=== PATIENT | male | born 1960 | race Caucasian/White ===

== ENCOUNTER → 2016-04-04 | Outpatient (CLI) | payer BC ==
[~2016-04-04] VITALS: Ht 170.2 cm; Wt 65.8 kg
[~2016-04-04] MED LIST: BP pill PO; LEVO25TA5 PO; LISI-538 PO; NS 1,000 ML IV SCH; OMEP40CA2 PO; PROPOFOL 200 MG/20 ML VIAL As Ordered ONE
--- NOTE | 2016-04-04 09:13 | ROOR ---
Patient Name: Ezekiel Gaxiola Procedure Date: 04/04/2016 8:48 AM Date of : 1960 Age: 55 Room: [facility] Gender: Male Note Status: Finalized Procedure: Colonoscopy Indications: Screening for colorectal malignant neoplasm Providers: Jose Mcgovern Jr, MD Referring MD: OLIVA SERRANO MD Requesting Provider: Medicines: Propofol per Anesthesia Complications: No immediate complications. Procedure: Pre-Anesthesia Assessment: - Prior to the procedure, a History and Physical was performed, and patient medications and allergies were reviewed. The patient is competent. The risks and benefits of the procedure and the sedation options and risks were discussed with the patient. All questions were answered and informed consent was obtained. Patient identification and proposed procedure were verified by the physician and the nurse in the pre-procedure area and in the procedure room. Mental Status Examination: alert and oriented. Airway Examination: normal oropharyngeal airway and neck mobility. Respiratory Examination: clear to auscultation. CV Examination: normal. ASA Grade Assessment: II - A patient with mild systemic disease. After reviewing the risks and benefits, the patient was deemed in satisfactory condition to undergo the procedure. The anesthesia plan was to use moderate sedation / analgesia (conscious sedation). Immediately prior to administration of medications, the patient was re-assessed for adequacy to receive sedatives. The heart rate, respiratory rate, oxygen saturations, blood pressure, adequacy of pulmonary ventilation, and response to care were monitored throughout the procedure. The physical status of the patient was re-assessed after the procedure. The Colonoscope was introduced through the anus and advanced to the cecum, identified by appendiceal orifice and ileocecal valve. The colonoscopy was performed with moderate difficulty due to significant looping. Successful completion of the procedure was aided by using manual pressure, withdrawing and reinserting the scope and straightening and shortening the scope to obtain bowel loop reduction. The patient tolerated the procedure well. The quality of the bowel preparation was adequate and excellent. Findings: The perianal and digital rectal examinations were normal. Pertinent negatives include normal sphincter tone, no palpable rectal lesions and no anal lesion or abnormality was detected. The rectum, recto-sigmoid colon, sigmoid colon, descending colon, transverse colon, ascending colon, cecum, appendiceal orifice and ileocecal valve appeared normal. The sigmoid colon, descending colon, transverse colon and ascending colon revealed moderately excessive looping. Impression: - The rectum, recto-sigmoid colon, sigmoid colon, descending colon, transverse colon, ascending colon, cecum, appendiceal orifice and ileocecal valve are normal. - There was significant looping of the colon. - No specimens collected. Recommendation: - Discharge patient to home (ambulatory). - Repeat colonoscopy in 10 years for screening purposes. Jose Mcgovern MD Jose Mcgovern Jr, MD 04/04/2016 9:13:21 AM This report has been signed electronically. Number of Addenda: 0 Note Initiated On: 04/04/2016 8:48 AM Estimated Blood Loss: Estimated blood loss: none.
[2016-04-04 09:30] VITALS: BP 120/85
== END | disposition home or self-care (01) ==
LOC: M OPP 08:06
PROVIDERS: ATTEND Surgery
DX: Z12.11 Encounter for screening for malignant neoplasm of colon (principal); I10 Essential (primary) hypertension; E03.9 Hypothyroidism, unspecified; R12 Heartburn; Z92.3 Personal history of irradiation; Z91.018 Allergy to other foods; Z87.891 Personal history of nicotine dependence; Z85.21 Personal history of malignant neoplasm of larynx; Z88.0 Allergy status to penicillin; Z79.899 Other long term (current) drug therapy
CPT/HCPCS: 99156; 99157; G0121

== ENCOUNTER 2016-06-15 08:31 | Emergency (ER) | payer BC ==
[~2016-06-15] VITALS: Ht 167.6 cm; Wt 63.5 kg
[~2016-06-15 08:31] MED LIST changes: -NS 1,000 ML IV SCH; -PROPOFOL 200 MG/20 ML VIAL As Ordered ONE
[2016-06-15 11:21] VITALS: BP 129/90
--- NOTE | 2016-06-15 15:10 | REP ---
THORACIC SPINE, THREE VIEWS: HISTORY: Spinal fusion. COMPARISON: PA/lateral chest, 06/03/2005. The patient is status post T9 to L3 posterior spinal fusion. Metal rods and pedicle screws are present. There is an old compression fracture of the L1 vertebral body with moderate loss of vertebral body height. The T12-L1 and L1-2 intervertebral discs are decreased in height consistent with disc degeneration. Osteophytes are present on T12 and L1. Increased kyphosis is present at the T12-L1 level. The hardware appears intact. IMPRESSION: The patient is status post T9 to L3 posterior spinal fusion. Signed by Bryson Acosta MD 06/15/2016 02:16 P
--- NOTE | 2016-06-15 15:10 | REP ---
LUMBAR SPINE, FIVE VIEWS: HISTORY: Spinal fusion. The patient is status post T9 to L3 posterior spinal fusion. Metal rods and pedicle screws are present. There is an old compression fracture of the L1 vertebral body with moderate loss of vertebral body height. The T12-L1, L1-2, and L4-5 intervertebral discs are decreased in height, consistent with disc degeneration. Osteophytes are present on T12 and L1. There is narrowing of the L5-S1 facet joints with associated sclerosis. There is increased kyphosis at the T12-L1 level. The hardware appears intact. IMPRESSION: The patient is status post T9 to L3 posterior spinal fusion. Signed by Bryson Acosta MD 06/15/2016 02:16 P
== END 2016-06-15 11:30 | disposition home or self-care (01) ==
LOC: M ED 09:39
DX: M54.9 Dorsalgia, unspecified (principal); E03.9 Hypothyroidism, unspecified; E78.00 Pure hypercholesterolemia, unspecified; Z85.819 Personal history of malignant neoplasm of unspecified site of lip, oral cavity, and pharynx; Z87.891 Personal history of nicotine dependence; Z88.0 Allergy status to penicillin; Z91.02 Food additives allergy status; K21.9 Gastro-esophageal reflux disease without esophagitis

== ENCOUNTER → 2017-07-30 | Outpatient (CLI) | payer BC | LOC: M WUC 16:28 | DX: J20.9 Acute bronchitis, unspecified (principal); M51.34 Other intervertebral disc degeneration, thoracic region; M85.88 Other specified disorders of bone density and structure, other site | CPT/HCPCS: 71046 ==

== ENCOUNTER → 2021-01-05 | Outpatient (CLI) | payer BC ==
[~2021-01-05] MED LIST changes: -LISI-538 PO; +LISI20TA33 PO; -OMEP40CA2 PO; +OMEP40CA4 PO
--- NOTE | 2021-01-05 13:20 | REPVR ---
PROCEDURE INFORMATION: Exam: MRA Neck Without Contrast Exam date and time: 01/05/2021 12:38 PM Age: 60 years old Clinical indication: Abnormal carotid US. TECHNIQUE: Imaging protocol: Magnetic resonance angiography of the neck without contrast. COMPARISON: No relevant prior studies available. FINDINGS: Right common carotid artery: There is severe stenosis of the right common carotid artery. An underlying dissection is suspected but difficult to confirm on this exam due to inherent limitations. Right internal carotid artery: There is moderate stenosis at the origin of the right cervical internal carotid artery. The lumen of the right cervical internal carotid remains small throughout its course. Right external carotid artery: No stenosis. No dissection or occlusion of the origin. Right vertebral artery: No stenosis. No dissection or occlusion. Left common carotid artery: No stenosis. No dissection or occlusion. Left internal carotid artery: No stenosis of the extracranial segment. No dissection or occlusion. Left external carotid artery: No stenosis. No dissection or occlusion of the origin. Left vertebral artery: No stenosis. No dissection or occlusion. Bones/joints: There are severe degenerative changes throughout the cervical spine, not well characterized on this exam. IMPRESSION: 1. There is severe stenosis of the right common carotid artery. An underlying dissection is suspected but difficult to confirm on this exam due to inherent limitations. Vascular surgery consultation and CTA are recommended. 2. There is moderate stenosis at the origin of the right cervical internal carotid artery. The lumen of the right cervical internal carotid remains small throughout its course. Follow-up CTA is recommended. 3. There are severe degenerative changes throughout the cervical spine, not well characterized on this exam. A dedicated MRI of the cervical spine is recommended. REFERENCES: NASCET CRITERIA. The degree of internal carotid artery stenosis is based on NASCET criteria. Normal is no stenosis. Mild is less than 50% stenosis. Moderate is 50-69% stenosis. Severe is 70% to 99% stenosis. Total occlusion is no detectable patent lumen. Electronically signed by: Tucker Ybarra On 01/05/2021 13:20:32 PM
== END ==
LOC: M PLARAD 11:59
PROVIDERS: ATTEND Internal Medicine
DX: I65.23 Occlusion and stenosis of bilateral carotid arteries (principal); M50.30 Other cervical disc degeneration, unspecified cervical region

== ENCOUNTER 2022-11-26 07:41 | Day surgery (SDC) | payer BC ==
[~2022-11-26] VITALS: Ht 167.6 cm; Wt 60.8 kg
[~2022-11-26 07:41] MED LIST changes: +UNRESOLVED CLARIFICATION ENTRY XX SCH
[2022-11-26] MEDS ORDERED: LR 1,000 ML IV SCH ×2 (07:45→11:05)
[2022-11-26] MEDS ORDERED: ONDANSETRON 4MG 2ML VIAL As Ordered ONE (08:14)
[2022-11-26] MEDS ORDERED: LIDOCAINE 2% 100MG/5ML SDV (FOR ANES.) As Ordered ONE (08:14)
[2022-11-26] MEDS ORDERED: fentaNYL 250 MCG/5 ML INJECTION As Ordered ONE (08:14)
[2022-11-26] MEDS ORDERED: MIDAZOLAM INJ 2MG/2ML VIAL As Ordered ONE (08:14)
[2022-11-26] MEDS ORDERED: ROCURONIUM BROMIDE 50MG/5ML VIAL As Ordered ONE (08:14)
[2022-11-26] MEDS ORDERED: propofoL 200 MG/20 ML VIAL As Ordered ONE (08:14)
[2022-11-26] MEDS ORDERED: ceFAZolin SOD 2 GM in IV 1 EA IV ONE (08:30)
[2022-11-26] MEDS ORDERED: ACETAMINOPHEN 1000MG 100ML IV BAG As Ordered ONE (09:09)
[2022-11-26] MEDS ORDERED: LIDOCAINE 2% JELLY 6ML SYRINGE As Ordered ONE (09:39)
[2022-11-26] MEDS ORDERED: ePHEDrine SULFATE 25 MG/5 ML(5MG/ML) SYRINGE As Ordered ONE (09:50)
[2022-11-26] MEDS ORDERED: KETOROLAC 60MG 2ML VIAL As Ordered ONE (09:55)
[2022-11-26] MEDS ORDERED: SUGAMMADEX SODIUM 500 MG/5 ML VIAL (BRIDION) As Ordered ONE (09:55)
[2022-11-26] MEDS ORDERED: traMADol 50 MG TAB PO PRN (11:05)
[2022-11-26] MEDS ORDERED: NS 1,000 ML IV SCH (11:05)
[2022-11-26] MEDS ORDERED: ONDANSETRON 4MG 2ML VIAL IV PRN (11:05)
[2022-11-26] MEDS ORDERED: oxyCODONE 5MG TAB PO PRN (11:05)
[2022-11-26] MEDS ORDERED: fentaNYL 100 MCG/2 ML INJECTION IV PRN (11:05)
[2022-11-26 12:16] VITALS: BP 150/82; TEMP 96.8; O2SAT 97
== END 2022-11-26 12:16 | disposition home or self-care (01) ==
LOC: M SDC 07:41
PROVIDERS: ATTEND Surgery
DX: K40.00 Bilateral inguinal hernia, with obstruction, without gangrene, not specified as recurrent (principal); I10 Essential (primary) hypertension; E03.9 Hypothyroidism, unspecified; K21.9 Gastro-esophageal reflux disease without esophagitis; Z92.3 Personal history of irradiation; Z85.21 Personal history of malignant neoplasm of larynx; Z79.899 Other long term (current) drug therapy; Z88.0 Allergy status to penicillin; Z91.018 Allergy to other foods
CPT/HCPCS: 49650; C1781; J0131; J0665; J0690; J1100; J1885; J2250; J2405; J3010; S2900